=== PATIENT | female | born 1980 | race Caucasian/White ===

== ENCOUNTER 2017-10-09 04:58 | Emergency (ER) | payer OTHER ==
[~2017-10-09] VITALS: Ht 167.6 cm; Wt 73.6 kg
[2017-10-09 06:10] LABS: INFLUENZA TYPE A NEGATIVE FOR TYPE A (NEGATIVE); INFLUENZA TYPE B NEGATIVE FOR TYPE B (NEGATIVE)
[2017-10-09 06:43] VITALS: BP 116/72
== END 2017-10-09 07:02 | disposition home or self-care (01) ==
LOC: EMS 04:59
DX: J32.9 Chronic sinusitis, unspecified (principal); Z90.49 Acquired absence of other specified parts of digestive tract; Z98.51 Tubal ligation status
CPT/HCPCS: 87804; 99284